=== PATIENT | male | born 1935 | race Caucasian/White ===

== ENCOUNTER 2021-06-28 15:00 | Emergency (ER) | payer OTHER, MEDICARE, SELFPAY ==
[2021-06-28 15:13] VITALS: BP 111/68; PULSE 95; RESP 16; TEMP 36.6; O2SAT 95; BMI 22.8
--- NOTE | 2021-06-28 15:25 | ED_ITS ---
HPI - Skin/Abscess/Foreign Bdy General: Chief complaint: Skin/Abscess/Foreign Body Stated complaint: Spot on the upper back feels infected Time Seen by Provider: 06/28/21 15:21 History of Present Illness: 85-year-old male comes in complaining of a large area on his upper back that is swollen and somewhat tender. He has previously been evaluated by this with his primary care doctor and was to have it removed but during the pandemic he was did not complete the arrangements. Is not been draining is not had any fever sweats chills he has tried to manipulate it some. MD complaint: abscess/boil Onset (ago): month(s) Tetanus up to date: yes Location: back (Localized specific area) Severity: mild Quality: aching Pain Consistency: intermittent Relieving factors: none Exacerbating factors: none Associated symptoms: Deny arthralgias, chills, cough, fever(s), itching, myalgias, nausea, rigidity, short of breath or vomiting Treatments prior to arrival: attempted to drain pus at home Review of Systems Const: Denies: fever(s) or chills ENMT: Denies: throat pain, ear or mastoid pain, nasal discharge or nasal congestion Card: Denies: chest pain, edema, dyspnea on exertion or orthopnea Resp: Denies: dyspnea, productive cough or non-productive cough GI: Denies: nausea or vomiting : Denies: flank pain, dysuria, urinary frequency or urinary urgency Skin/Breast: Denies: rash or pruritus Physical Exam Const: COMMON NORMALS: no acute distress GENERAL APPEARANCE: cooperative and comfortable ORIENTATION/CONSCIOUSNESS: Yes awake, Yes oriented to person, Yes oriented to place and Yes oriented to time HENMT: COMMON NORMALS: normocephalic, atraumatic and hearing grossly normal bilaterally HEAD & SCALP: normocephalic and atraumatic Neck/C-Spine: COMMON NORMALS: no JVD Resp: COMMON NORMALS: normal respiratory effort, No retractions, No use of accessory muscles and clear to auscultation bilaterally AUSCULTATION: clear to auscultation bilaterally Cardio: COMMON NORMALS: no JVD, regular rate, regular rhythm and No murmurs present (Cardio) RATE: regular rate RHYTHM: regular rhythm Extremity: COMMON NORMALS: normal to inspection, capillary refill normal, no clubbing, cyanosis or edema, no calf tenderness and no pedal edema Neuro: SENSORIUM/ORIENTATION: Yes oriented to person, Yes oriented to place and Yes oriented to time Skin: OTHER: Large sebaceous cyst the T3 level. Is approximately 3 inches in diameter round. It is not inflamed but is slightly bruised on opposing sides it appears that was manipulated without success. There is no pointing or drainage there is an open comedone at the center. No localized erythema or induration. Course Vital Signs: Vital signs: Vital Signs Temperature 97.9 F 06/28/21 15:13 Pulse Rate 95 06/28/21 15:13 Respiratory Rate 16 06/28/21 15:13 Blood Pressure 111/68 06/28/21 15:13 Pulse Oximetry 95 06/28/21 15:13 MDM - Skin/Abscess/Foreign Bdy Medicial Decision Making Large sebaceous cyst which should be amenable to outpatient removal in clinic setting. Will refer him to surgery to have it removed. Patient is quite concerned is infected we will put him on short course of Bactrim for now discourage further manipulation. Medical Records I reviewed the patient's medical records. Lab Data I reviewed the patient's lab results. Discharge Plan Discharge Patient Disposition: Home Clinical Impression: Sebaceous cyst Condition: Stable Prescriptions: New Bactrim DS 800-160 mg tablet 1 tab PO BID 7 Days Qty: 14 0RF Discharge Orders: Discharge ED (Routine); Ordered 06/28/21 Ordered By: Radu Zaragoza Referrals: Dennis Harmon MD [Primary Care Provider] - Discharge Diet: Usual diet Discharge Activity: Resume usual activity Patient Instructions: Opioid Safety Activity Restrictions/Additional Instructions: Case management will make arrangements for you to be seen by general surgery to excise the cyst. 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
--- NOTE | 2021-07-05 13:23 | DCPLANNER ---
Addendum entered by Tati Moore 07/21/21 09:20: Patient had a follow up appointment scheduled for 07.19.[address] Dent at general surgery - patient did attend appointment. Addendum entered by Tati Moore 07/11/21 08:48: Patient has a follow up appointment scheduled for Monday, July 19, 2021 at 1:[address] Dent at [facility] General Surgery / ENT. Clinic will contact patient with appointment information. Addendum entered by Tati Moore 07/05/21 13:26: Patient has [facility] insurance, manager case management sent patients information to Padmin[facility] with [facility]. Patients information will be reviewed, and the process for authorization will start. Original Note: airport location manager had message to schedule a follow up appointment for patient with general surgery. airport location manager emailed patients information to Memo at [facility] General Surgery / ENT clinic. Patients information will be printed and reviewed. Clinic will call patient with appointment information.
== END 2021-06-28 15:32 | disposition home or self-care (01) ==
PROVIDERS: Emergency Provider Family Medicine; Family Provider Urology; PCP Urology
DX: L72.3 Sebaceous cyst (principal)
CPT/HCPCS: 99281

== ENCOUNTER → 2021-07-19 13:35 | Outpatient (BNVA) | payer OTHER, MEDICARE, SELFPAY | PROVIDERS: Family Provider Urology; PCP Urology; Visit Provider Surgery | DX: Z20.822 Contact with and (suspected) exposure to COVID-19 (principal); L72.3 Sebaceous cyst | CPT/HCPCS: 87635 ==

== ENCOUNTER 2023-09-20 12:32 | Emergency (ER) | payer OTHER, SELFPAY ==
[2023-09-20 12:52] VITALS: BP 107/69; PULSE 79; RESP 20; TEMP 36.7; O2SAT 90
--- NOTE | 2023-09-20 13:44 | ECG_ITS ---
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 Measurements Intervals [place] Rate: 87 P: 83 [place]: 215 QRS: -24 QRSD: 87 T: 73 QT: 340 QTc: 411 Interpretive Statements SINUS RHYTHM WITH FIRST DEGREE AV BLOCK BORDERLINE LEFT AXIS DEVIATION [QRS AXIS < -20] NONSPECIFIC T-WAVE ABNORMALITY Compared to ECG 09/17/2014 15:08:18 First degree AV block now present T-wave abnormality now present Electronically Signed On 09-20-2023 15:51:47 CDT by Jaswant Kolb M.D. [id number]
--- NOTE | 2023-09-20 13:44 | XR_ITS ---
WS: [id number] Exam: XR chest 1V portable [id number] Date/Time of Exam: 09/20/2023 2:13 PM Reason For Exam: dyspnea/cough Comparison 05/10/2014. Small lung infiltrate with plaque atelectasis seen in the RIGHT lung base. Developing pneumonia not e xcluded. Remaining lung hayes are clear. No pneumothorax or pleural effusion. Unremarkable cardiomed iastinal silhouette. Bony structures are intact. XR/XR chest 1V portable [id number] IMPRESSION: 1. Small infiltrate and plaque atelectasis in the RIGHT base. Developing pneumo sumit is not excluded.
--- NOTE | 2023-09-20 13:53 | ED_ITS ---
HPI - SOB/Dyspnea 2 General: Chief Complaint: Shortness of Breath/Dyspnea Stated Complaint: sent from [place], slight breathing trouble Time Seen by Provider: 09/20/23 13:43 Source: patient Mode of arrival: ambulatory History of Present Illness: HPI Narrative: 87-year-old male presents emergency room at the direction of the [facility]. He was recently treated with oral antibiotics for a pneumonia which she completed just a couple of days ago he still having a productive cough complains of generalized weakness. Since this illness began he has been wearing his oxygen at 2 L/min. Patient has an oxygen concentrator he said he was given about 2 to 3 years ago but he states he only uses it as needed recently he does need to use it continuously but on most days he does not checks his oxygen saturation at home said most days without oxygen he will run around 92%. He denies any hemoptysis. He has a history of atrial fibrillation but has not had any racing heart rate slightly he is not on any anticoagulants but does take 2 baby aspirin daily. No recent chest pain associated with this. MD elicited complaint: shortness of breath and cough Pertinent past history: COPD Exacerbating factors: nothing Relieving factors: nothing Known history of: COPD Associated symptoms: Deny abdominal pain, chest congestion, chest pain, cough, diaphoresis, dizziness, extremity pain, fever(s), hemoptysis, lightheadedness, myalgias, nausea, orthopnea, palpitations, paresthesias, polydipsia, polyuria, rash, sense of impending doom, syncope or vomiting Treatment prior to arrival: none Review of Systems 2 Const: Denies: fever(s), chills or diaphoresis Card: Denies: chest pain, palpitations, lightheadedness, syncope or orthopnea Resp: Denies: dyspnea, hemoptysis or chest congestion GI: Denies: abdominal pain, nausea or vomiting : Denies: dysuria, urinary frequency or urinary urgency Musc: Denies: neck pain, back pain or extremity pain Skin/Breast: Denies: rash Neuro: Denies: dizziness Endo: Denies: polyuria or polydipsia PFSH ED 2 PFSH: Medical History Prostate cancer Hypertension Atrial fibrillation Surgical History S/P nasal surgery deviated septum History of right inguinal hernia repair History of laparoscopic cholecystectomy Social History Smoking and tobacco/nicotine status: former use of tobacco/nicotine Physical Exam 2 Const: GENERAL APPEARANCE: cooperative and comfortable O RIENTATION/CONSCIOUSNESS: Yes awake, Yes oriented to person, Yes oriented to place and Yes oriented to time HENMT: COMMON NORMALS: normocephalic, atraumatic and hearing grossly normal bilaterally HEAD & SCALP: normocephalic and atraumatic Resp: COMMON NORMALS: normal respiratory effort, No retractions and No use of accessory muscles AUSCULTATION: wheezes Cardio: COMMON NORMALS: regular rate, regular rhythm and No murmurs present (Cardio) RATE: regular rate RHYTHM: regular rhythm GI: COMMON NORMALS: Soft to palpation and No hepatosplenomegaly present A USCULTATION: Yes normoactive bowel sounds PALPATION: Yes Soft to palpation, No Tenderness to palpation present (GI), No Guarding due to palpation present (GI) and Yes No hepatosplenomegaly present Extremity: COMMON NORMALS: normal to inspection, capillary refill normal, no clubbing, cyanosis or edema, no calf tenderness and no pedal edema Neuro: SENSORIUM/ORIENTATION: Yes oriented to person, Yes oriented to place and Yes oriented to time Skin: COMMON NORMALS: no rashes or lesions noted GENERAL SKIN EXAM: no rashes or lesions noted Course 2 Vital Signs: Vital signs: Vital Signs Temperature 98.0 F 09/20/23 12:52 Pulse Rate 80 09/20/23 15:03 Respiratory Rate 20 H 09/20/23 12:52 Blood Pressure 107/69 09/20/23 12:52 Pulse Oximetry 90 09/20/23 12:52 Oxygen Delivery Me thod Nasal Cannula 09/20/23 12:52 Oxygen Flow Rate 2 09/20/23 12:52 MDM - SOB/Dyspnea Medical Decision Making Pneumonia at the right base. Patient's oxygen saturations are normal on his usual amount of oxygen. Discussed with him we will treat as an outpatient he did not have any leukocytosis. ABG is well compensated. Start him on Levaquin for 10 days aggressive use of albuterol nebulizers also start Medrol dose pack tomorrow. Recheck if has any worsening of symptoms Medical Records I reviewed the patient's medical records. Lab Data I reviewed the patient's lab results. 09/20/23 13:55 09/20/23 15:03 Labs/Radiology: Radiology Impressions Chest X-Ray 09/20/23 13:44 IMPRESSION: 1. Small infiltrate and plaque atelectasis in the RIGHT base. Developing pneumonia is not excluded. Laboratory Results WBC 7.48 10^3/uL (3.29-11.43) 09/20/23 13:55 RBC 5.14 10^6/uL (3.85-5.65) 09/20/23 13:55 Hgb 14.70 g/dL (11.27-16.99) 09/20/23 13:55 Hct 45.6 % (37-53) 09/20/23 13:55 MCV 88.7 fl (82-101) 09/20/23 13:55 MCH 28.6 pg (27-33) 09/20/23 13:55 MCHC 32.2 g/dL (30-55) 09/20/23 13:55 RDW 12.2 % (12.1-15.1) 09/20/23 13:55 Plt Count 273 10^3/cmm (157-399) 09/20/23 13:55 MPV 10.3 fL (7.4-10.4) 09/20/23 13:55 Neut % (Auto) 66.7 % 09/20/23 13:55 Lymph % (Auto) 12.8 % 09/20/23 13:55 [place] % (Auto) 19.5 % 09/20/23 13:55 Eos % (Auto) 0.3 % 09/20/23 13:55 Baso % (Auto) 0.3 % 09/20/23 13:55 Neut # (Auto) 4.99 10^3/uL (1.8-7.7) 09/20/23 13:55 Lymph # (Auto) 1.0 10^3/uL (0.8-4.8) 09/20/23 13:55 [place] # (Auto) 1.5 10^3/uL (0.2-0.9) H 09/20/23 13:55 Eos # (Auto) 0.0 10^3/uL (0.0-0.8) 09/20/23 13:55 Baso # (Auto) 0.0 10^3/uL (0.0-0.1) 09/20/23 13:55 Nucleated RBC % (auto) 0 % 09/20/23 13:55 Nucleated RBCs # 0.0 /100WBC 09/20/23 13:55 Specimen Type Arterial 09/20/23 13:52 Sample Site Brachial, left 09/20/23 13:52 ABG pH 7.44 (7.35-7.45) 09/20/23 13:52 ABG pCO2 39.7 mmHg (35-45) 09/20/23 13:52 ABG pO2 62.1 mmHg (80.0-100.0) L 09/20/23 13:52 ABG PO2/FiO2 Ratio 0 09/20/23 13:52 ABG HCO3 27.1 mmol/L (22-26) H 09/20/23 13:52 ABG O2 Saturation 92.2 09/20/23 13:52 ABG Base Excess 2.8 mmol/L (-2.0-2.0) H 09/20/23 13:52 [place]ane Test N/a 09/20/23 13:52 A-a O2 Gradient 11.6 mmHg (5-10) H 09/20/23 13:52 Hematocrit 45.8 % (42-52) 09/20/23 13:52 Hgb O2 Saturation 90.4 % (95-100) L 09/20/23 13:52 Carboxyhemoglobin 0.8 %THgb (0.4-20.1) 09/20/23 13:52 Methemoglobin 1.2 % (0.4-1.5) 09/20/23 13:52 Total Hemoglobin 14.9 g/dL (14-18) 09/20/23 13:52 Sodium 130.0 mmol/L (131-143) L 09/20/23 13:52 Potassium 4.3 mmol/L (3.5-5.0) 09/20/23 13:52 Glucose 117.0 mg/dL (70-115) H 09/20/23 13:52 Ionized Calcium 1.2 mmol/L (1.1-1.4) 09/20/23 13:52 O2 Delivery Device Nc 09/20/23 13:52 O2 Liters/Min 2.0 % 09/20/23 13:52 FiO2 28.0 % 09/20/23 13:52 Continuity Tester ID Amh 09/20/23 13:52 Sodium 131 mmol/L (136-145) L 09/20/23 15:03 Potassium 4.6 mmol/L (3.5-5.1) 09/20/23 15:03 Chloride 96 mmol/L (98-107) L 09/20/23 15:03 Carbon Dioxide 27 mmol/L (22-29) 09/20/23 15:03 Anion Gap 12.6 (5-19) 09/20/23 15:03 BUN 15 mg/dL (8-23) 09/20/23 15:03 Creatinine 0.6 mg/dL (0.7-1.2) L 09/20/23 15:03 GFR Calculation Not Reportable 09/20/23 15:03 Glucose 118 mg/dL (65-115) H 09/20/23 15:03 Calculated Osmolality 274 mOsm/kg (285-295) L 09/20/23 15:03 Calcium 8.8 mg/dL (8.5-10.5) 09/20/23 15:03 Total Bilirubin 0.4 mg/dL (0.15-1.2) 09/20/23 15:03 AST 23 U/L (0-40) 09/20/23 15:03 ALT 20 U/L (0-41) 09/20/23 15:03 Alkaline Phosphatase 74 U/L (40-130) 09/20/23 15:03 Troponin T Baseline 12 ng/L (0-15) 09/20/23 13:55 Total Protein 6.3 g/dL (6.6-8.7) L 09/20/23 15:03 Albumin 3.3 g/dL (3.5-5.2) L 09/20/23 15:03 Globulin 3.0 g/dL (1.3-4.6) 09/20/23 15:03 All radiology interpretation(s) finalized by discharge Discharge Plan Discharge Patient Disposition: Home Clinical Impression: Community acquired pneumonia, Acute exacerbation of chronic obstructive airways disease Condition: Stable Prescriptions: New levofloxacin 500 mg tablet 500 mg PO DAILY 10 Days Qty: 10 0RF ipratropium-albuterol 0.5 mg-3 mg(2.5 mg base)/3 mL solution for nebulization 3 ml inhalation Q4H PRN (Reason: shortness of breath or wheezing) Qty: 90 0RF Medrol (Checo) 4 mg tablets,dose pack See Rx Instructions .ROUTE .COMPLEX Qty: 21 0RF Rx Instructions: orally per package directions No Action albuterol sulfate 90 mcg/actuation HFA aerosol inhaler 2 puff inhalation Q6H PRN (Reason: Shortness Of Breath) finasteride 5 mg tablet 5 mg PO DAILY guaifenesin 400 mg tablet 400 mg PO QID tamsulosin [Flomax] 0.4 mg capsule 0.4 mg PO DAILY diltiazem HCl 180 mg capsule,extended release 24hr 180 mg PO DAILY fluticasone propionate 50 mcg/actuation spray,suspension 2 spray intranasal DAILY Rx Instructions: administer into each nostril loratadine 10 mg capsule 10 mg PO DAILY omeprazole 20 mg capsule,delayed release(DR/EC) 20 mg PO DAILY Aspir-81 81 mg Tablet,Delayed Release (Dr/Ec) 81 mg PO DAILY Discharge Orders: Discharge ED (Routine); Ordered 09/20/23 Ordered By: Radu Zaragoza Referrals: Dennis Harmon MD [Primary Care Provider] - Patient Instructions: Opioid Safety, Pain Management Activity Restrictions/Additional Instructions: Thank you for choosing [facility] for your healthcare needs today. Please realize this is an emergency room and that we are providing you with a medical screening exam and this may not be complete and all inclusive of all the testing and or work up that you may need to determine your ailment or severity of your illness. It is very important that you follow up as instructed or that you return to the Emergency Department should you have concerns or if your condition changes or worsens in any way. You were seen today with complaints of cough and shortness of breath chest x-ray shows pneumonia. Your white count is normal and your oxygen sats are stable on the supplemental oxygen. Recommend regular use of the DuoNebs every 4 hours while you are awake. Start oral steroid taper tomorrow Levaquin 500 mg once daily for 10 days Print Language: Libyan Coding Level of Care Code ED [employer] Special Education Teacher for Terrence Cee
[2023-09-20 14:03] LABS: ABG PCO2 39.7 mmHg (35-45); ABG PH Result 7.44 (7.35-7.45); Alveolar-Arterial Oxygen Gradi 11.6 mmHg (5-10); Arterial Blood Gas Hematocrit 45.8 % (42-52); Base Excess ABG 2.8 mmol/L (-2.0-2.0); Blood Gas Operator Identificat AMH; Blood Gas Sample Site Brachial, left; Blood Gas Sample Type Arterial; Carboxyhemoglobin 0.8 %THgb (0.4-20.1); HCO3 ABG 27.1 mmol/L (22-26); HGB O2 Sat 90.4 % (95-100); Ionized Calcium Level - ABG 1.2 mmol/L (1.1-1.4); Methemoglobin 1.2 % (0.4-1.5); Oxygen Device NC; Oxygen Saturation ABG 92.2; PO2 ABG 62.1 mmHg (80.0-100.0); PO2 FiO2 Ratio Arterial Blood 0; Potassium Level - ABG 4.3 mmol/L (3.5-5.0); Total Hemoglobin 14.9 g/dL (14-18)
[2023-09-20 14:10] LABS: Basophils % 0.3 %; Eosinophils % 0.3 %; Hematocrit 45.6 % (37-53); Lymphocytes % 12.8 %; Mean Corpuscular HGB Conc 32.2 g/dL (30-55); Mean Corpuscular Hemoglobin 28.6 pg (27-33); Mean Corpuscular Volume 88.7 fl (82-101); Mean Platelet Volume 10.3 fL (7.4-10.4); Monocytes # 1.5 10^3/uL (0.2-0.9); Monocytes % 19.5 %; Neutrophils # 4.99 10^3/uL (1.8-7.7); Neutrophils % 66.7 %; Nucleated Red Blood Cells % 0 %; Platelet Count 273 10^3/cmm (157-399); Red Blood Count 5.14 10^6/uL (3.85-5.65); Red Cell Distribution Width 12.2 % (12.1-15.1); White Blood Count 7.48 10^3/uL (3.29-11.43)
--- NOTE | 2023-09-20 14:21 | PC.PHAR ---
PT IS [facility] BUT HAS MED LIST AND HAS TAKEN AM MEDICATIONS TODAY
[2023-09-20 14:30] LABS: Troponin(5th) Baseline 12 ng/L (0-15)
[2023-09-20 15:03] VITALS: PULSE 80
[2023-09-20 15:43] LABS: Alanine Aminotransferase 20 U/L (0-41); Albumin Level 3.3 g/dL (3.5-5.2); Alkaline Phosphatase 74 U/L (40-130); Anion Gap 12.6 (5-19); Aspartate Amino Transferase 23 U/L (0-40); Blood Urea Nitrogen 15 mg/dL (8-23); Calcium 8.8 mg/dL (8.5-10.5); Carbon Dioxide 27 mmol/L (22-29); Chloride 96 mmol/L (98-107); Creatinine Clr Calc Pharmacy 57.3291; Glucose 118 mg/dL (65-115); Osmolality Calculated 274 mOsm/kg (285-295); Potassium 4.6 mmol/L (3.5-5.1); Sodium 131 mmol/L (136-145); Total Bilirubin 0.4 mg/dL (0.15-1.2); Total Protein 6.3 g/dL (6.6-8.7)
--- NOTE | 2023-09-20 16:01 | ECG_ITS ---
[facility] Test Date: 2023-09-20 Pat Name: Kiran Lopez Department: Room: Gender: Male Manager Radio: : 1935 Requested By: Radu Jorge Order Number: [id number] Ash MD: Theodore Bills M.D. Measurements Intervals [place] Rate: 82 P: 91 [place]: 199 QRS: -20 QRSD: 102 T: 80 QT: 369 QTc: 432 Interpretive Statements SINUS RHYTHM Compared to ECG 09/20/2023 14:04:56 First degree AV block no longer present T-wave abnormality no longer present Electronically Signed On 09-21-2023 12:36:56 CDT by Theodore Bills M.D. [id number]
== END 2023-09-20 16:27 | disposition home or self-care (01) ==
PROVIDERS: Emergency Provider Family Medicine; Family Provider Urology; PCP Urology
DX: J44.0 Chronic obstructive pulmonary disease with (acute) lower respiratory infection (principal); J18.9 Pneumonia, unspecified organism; J44.1 Chronic obstructive pulmonary disease with (acute) exacerbation; Z79.82 Long term (current) use of aspirin; Z85.46 Personal history of malignant neoplasm of prostate; I10 Essential (primary) hypertension; Z87.891 Personal history of nicotine dependence
CPT/HCPCS: 36415; 36600; 71045; 80051; 80053; 82330; 82805; 84484; 85025; 87040; 87070; 87205; 93005; 99285

== ENCOUNTER 2023-10-03 14:25 | Outpatient (CLI) | payer OTHER, SELFPAY ==
--- NOTE | 2023-10-03 14:31 | US_ITS ---
WS: [id number] ULTRASOUND SOFT TISSUES LEFT neck, submandibular region. HISTORY: PALPABLE LYMPH NODE LEFT ANTERIOR NECK COMPARISON: None available. TECHNIQUE: 2-D and color Doppler imaging is submitted. No cervical chain lymphadenopathy. There is mild plaque in the carotid artery. US/US soft tissue head neck [id number] IMPRESSION: No mass along the LEFT cervical chain. No mass
== END 2023-10-03 14:26 | disposition home or self-care (01) ==
LOC: RAD 14:25
PROVIDERS: PCP Urology; Visit Provider Family Medicine
DX: Z01.89 Encounter for other specified special examinations (principal)
CPT/HCPCS: 76536